=== PATIENT | male | born 1980 | race Caucasian/White ===

== ENCOUNTER 2018-12-24 11:45 | Outpatient (REF) | payer MEDICAID, SELFPAY ==
[2018-12-24 21:22] LABS: ALT 36 U/L (12-78); AST 18 U/L (15-37); Albumin 3.9 g/dL (3.4-5.0); Alkaline Phosphatase 87 U/L (46-116); Anion Gap 10.9 mmol/L (3-11); BUN 18 mg/dL (7-18); Bilirubin, Total 0.6 mg/dL (0.2-1.0); CO2 25.1 mmol/L (21.0-32.0); CREATININE 1.08 mg/dL (0.70-1.30); Calcium 9.2 mg/dL (8.5-10.1); Chloride 105 mmol/L (98-107); Cholesterol 190 mg/dL (50-200); Glucose 87 mg/dL (70-100); HDL Cholesterol 39 mg/dL (40-60); LDL CHOLESTEROL 131 mg/dL (<100); Potassium 3.6 mmol/L (3.5-5.1); Sodium 141 mmol/L (136-145); Total Protein 7.4 g/dL (6.4-8.2); Triglyceride 90 mg/dL (30-150)
== END 2018-12-24 12:05 ==
LOC: NCHCN 11:45
PROVIDERS: PCP Internal Medicine; Visit Provider Registered Nurse
DX: Z13.220 Encounter for screening for lipoid disorders (principal); Z13.228 Encounter for screening for other metabolic disorders; Z79.899 Other long term (current) drug therapy; Z51.81 Encounter for therapeutic drug level monitoring; Z00.00 Encounter for general adult medical examination without abnormal findings
CPT/HCPCS: 80053; 80061; 83721

== ENCOUNTER 2019-08-16 09:57 | Outpatient (REF) | payer MEDICAID, SELFPAY ==
[2019-08-16 21:17] LABS: RBC Distribution Width 13.2 % (11.8-14.1)
[2019-08-16 21:19] LABS: ALT 31 U/L (16-63)
[2019-08-16 22:21] LABS: HCT 47.8 % (40.0-50.0); HGB 16.1 g/dL (13.5-17.5); Mean Corp. HGB Concentration 33.7 g/dL (32.0-36.0); Mean Corpuscular Hemoglobin 30.4 pg (27.0-33.0); Mean Corpuscular Volume 90.4 fL (80-95); Platelet Count 189 x1000/uL (130-400); RBC 5.29 m/cumm (4.50-6.00); White Blood Cell Count 4.74 k/cumm (4.4-10.8)
[2019-08-20 14:21] LABS: Lamotrigine 3.2 mcg/mL (2.5 - 15.0)
[2019-08-21 06:30] LABS: Topiramate 7.3 mcg/mL
== END 2019-08-16 10:17 ==
LOC: LBN 09:57
PROVIDERS: PCP Internal Medicine; Visit Provider Psychiatry & Neurology Neurology
DX: R56.9 Unspecified convulsions (principal); Z51.81 Encounter for therapeutic drug level monitoring; Z79.899 Other long term (current) drug therapy
CPT/HCPCS: 80175; 85027; 80177; 80201; 84460

== ENCOUNTER 2020-03-25 10:46 | Outpatient (REF) | payer MEDICAID, SELFPAY | END 2020-03-25 11:06 | LOC: NCHCN 10:46 | PROVIDERS: PCP Internal Medicine; Visit Provider Registered Nurse | DX: R35.0 Frequency of micturition (principal) | CPT/HCPCS: 87086 ==

== ENCOUNTER 2020-10-22 18:00 | Outpatient (REF) | payer MEDICAID, SELFPAY ==
[2020-10-22 21:06] LABS: Hemoglobin A1C 5.3 % (<5.7)
[2020-10-22 21:29] LABS: Calculated LDL 112 mg/dL (<100); Cholesterol 169 mg/dL (<200); HDL Cholesterol 41 mg/dL (40-60); Triglyceride 82 mg/dL (<150)
== END 2020-10-22 18:01 | disposition home or self-care (01) ==
LOC: NCHCN 18:00
PROVIDERS: PCP Registered Nurse; Visit Provider Registered Nurse
DX: Z13.1 Encounter for screening for diabetes mellitus (principal); Z13.220 Encounter for screening for lipoid disorders; Z79.899 Other long term (current) drug therapy
CPT/HCPCS: 80061; 83036

== ENCOUNTER 2021-03-03 15:47 | Outpatient (REF) | payer MEDICAID, SELFPAY ==
[2021-03-03 21:44] LABS: Abs Immature Grans 0.01 10^3/uL (0.0-0.06); Absolute Basophil Count 0.05 10^3/uL (0.0-0.2); Absolute Eosinophil Count 0.11 10^3/uL (0.0-0.7); Absolute Lymphocyte Count 1.87 10^3/uL (1.2-3.4); Absolute Monocyte Count 0.63 10^3/uL (0.1-0.8); Absolute Neutrophil Count 4.75 10^3/uL (1.2-6.7); Basophils % 0.7; Eosinophils % 1.5; HCT 50.6 % (40.0-50.0); HGB 17.1 g/dL (13.5-17.5); Immature Grans % 0.1; Lymphocytes % 25.2; MCH 30.8 pg (27.0-33.0); MCHC 33.8 % (32.0-36.0); MCV 91.2 fL (80-95); MPV 10.8 fL (8.0-11.0); Monocytes % 8.5; Nucleated RBC 0 %; Platelet Count 216 10^3/uL (130-400); RBC 5.55 10^6/uL (4.36-5.78); RDW 12.3 % (11.8-14.1); RDW-SD 41.4 fL; WBC 7.42 10^3/uL (4.4-10.8)
[2021-03-03 22:05] LABS: ALT 36 U/L (16-63); AST 26 U/L (15-37); Albumin 4.4 g/dL (3.4-5.0); Alkaline Phosphatase 88 U/L (46-116); Anion Gap 14.5 mmol/L (3-11); BUN 15 mg/dL (7-18); Bilirubin, Total 0.4 mg/dL (0.2-1.0); CO2 22.5 mmol/L (21.0-32.0); Calcium 9.5 mg/dL (8.5-10.1); Chloride 106 mmol/L (98-107); Glucose 132 mg/dL (74-106); Potassium 3.6 mmol/L (3.5-5.1); Sodium 143 mmol/L (136-145); TSH 3.33 uIU/mL (0.36-3.74)
== END 2021-03-03 15:48 | disposition home or self-care (01) ==
LOC: NCHCN 15:47
PROVIDERS: PCP Registered Nurse; Visit Provider Registered Nurse
DX: R44.0 Auditory hallucinations (principal)
CPT/HCPCS: 80053; 84443; 85025

== ENCOUNTER 2021-10-08 12:22 | Outpatient (REF) | payer MEDICAID, SELFPAY ==
--- OUTSIDE RECORDS SUMMARY | 2021-10-08 12:25 | XMS_ITS | CCD ---
:1980 Author Care Team Providers Name Role Phone DANIELLE DICKSON MD Attending Physician Unavailable TORRES Er Physician 1 Unavailable Vital Signs Unknown or Not Available. Allergies Unknown or Not Available. Procedures Unknown or Not Available. History of Immunizations Unknown or Not Available. Problems Unknown or Not Available. Results Unknown or Not Available. Active Medications Unknown or Not Available. Medications Administered During Visit Unknown or Not Available. Encounters Encounter Diagnosis Diagnosis Code Start Date Auditory hallucinations R440 03/04/2021 Social History Smoking Status Code Start Date End Date Never smoker [id number] Patient Decision Aids Unknown or Not Available. Discharge Instructions You were admitted to [facility] on 03/04/2021 12:29 with a principal diagnosis of Auditory hallucinations You were discharged from [facility] on 03/04/2021 15:52 Should you have any questions prior to d ischarge, please contact a member of your healthcare team. If you have left the spital and have any questions, please contact your primary care physician. Chief Complaint and Reason For Visit Chief Complaint Date of Onset DISORIENTED/HALLUCINATIONS 03/04/2021 Function Status Unknown or Not Available. Plan of Care Unknown or Not Available. Referral/Transition of Care Unknown or Not Available.
[2021-10-08 16:04] LABS: HCT 47.9 % (40.0-50.0); HGB 15.7 g/dL (13.5-17.5); MCH 29.7 pg (27.0-33.0); MCHC 32.8 % (32.0-36.0); MCV 90.5 fL (80-95); MPV 11.1 fL (8.0-11.0); Platelet Count 188 10^3/uL (130-400); RBC 5.29 10^6/uL (4.36-5.78); RDW 12.8 % (11.8-14.1); RDW-SD 42.2 fL; WBC 4.78 10^3/uL (4.4-10.8)
[2021-10-10 13:56] LABS: Lyme Ab w Rflx to Lyme Confirm Negative (Negative)
[2021-10-11 06:28] LABS: Vitamin D 25 Total 26.3 ng/mL (30-100)
[2021-10-11 17:00] LABS: Anaplasma phagocytophilum Negative (Negative); B. miyamotoi PCR Negative (Negative); Babesia divergens/MO-1 Negative (Negative); Babesia duncani Negative (Negative); Babesia microti Negative (Negative); Ehrlichia chaffeensis Negative (Negative); Ehrlichia ewingii/canis Negative (Negative); Ehrlichia muris eauclairensis Negative (Negative)
== END 2021-10-08 12:23 | disposition home or self-care (01) ==
LOC: NCHCN 12:22
PROVIDERS: PCP Registered Nurse; Visit Provider Registered Nurse
DX: R53.83 Other fatigue (principal); G47.00 Insomnia, unspecified; R41.3 Other amnesia; R44.0 Auditory hallucinations
CPT/HCPCS: 82306; 85027; 87798; 84443; 86618

== ENCOUNTER 2022-10-07 09:54 | Outpatient (REF) | payer MEDICARE, MEDICAID, SELFPAY ==
[2022-10-12 08:28] LABS: Topiramate 11.3 mcg/mL
== END 2022-10-07 09:55 | disposition home or self-care (01) ==
LOC: LBN 09:54
PROVIDERS: PCP Registered Nurse; Visit Provider Psychiatry & Neurology Neurology
DX: R56.9 Unspecified convulsions (principal); Z51.81 Encounter for therapeutic drug level monitoring; Z79.899 Other long term (current) drug therapy
CPT/HCPCS: 80175; 84520; 80201; 82565

== ENCOUNTER 2022-12-07 12:35 | Outpatient (REF) | payer MEDICARE, MEDICAID, SELFPAY ==
[2022-12-07 22:11] LABS: HCT 47.9 % (40.0-50.0); HGB 15.8 g/dL (13.5-17.5); MCV 88 fL (80-95); Platelet Count 252 10^3/uL (130-400); RBC 5.44 10^6/uL (4.36-5.78); RDW-SD 41.9 fL; WBC 7.51 10^3/uL (4.4-10.8)
[2022-12-07 23:02] LABS: Calculated LDL 138 mg/dL (<100); Cholesterol 197 mg/dL (<200); HDL Cholesterol 41 mg/dL (40-60); TSH 2.05 uIU/mL (0.36-3.74); Triglyceride 94 mg/dL (<150); Vitamin B12 570 pg/mL (193-986)
== END 2022-12-07 12:36 | disposition home or self-care (01) ==
LOC: NCHCN 12:35
PROVIDERS: PCP Registered Nurse; Visit Provider Registered Nurse
DX: R53.83 Other fatigue (principal); R53.81 Other malaise; Z79.899 Other long term (current) drug therapy; R56.9 Unspecified convulsions
CPT/HCPCS: 80061; 85027; 82607; 84443

== ENCOUNTER 2023-01-17 11:33 | Outpatient (REF) | payer MEDICARE, MEDICAID, SELFPAY ==
[2023-01-17 14:57] LABS: Abs Immature Grans 0.02 10^3/uL (0.0-0.06); Absolute Basophil Count 0.02 10^3/uL (0.0-0.2); Absolute Eosinophil Count 0.09 10^3/uL (0.0-0.7); Absolute Lymphocyte Count 1.35 10^3/uL (1.2-3.4); Absolute Monocyte Count 0.51 10^3/uL (0.1-0.8); Absolute Neutrophil Count 4.49 10^3/uL (1.2-6.7); Basophils % 0.3; Eosinophils % 1.4; HCT 45.7 % (40.0-50.0); HGB 14.9 g/dL (13.5-17.5); Immature Grans % 0.3; Lymphocytes % 20.8; MCH 28.7 pg (27.0-33.0); MCHC 32.6 % (32.0-36.0); MCV 88 fL (80-95); MPV 10.2 fL (8.0-11.0); Monocytes % 7.9; Neutrophils % 69.3; Platelet Count 239 10^3/uL (130-400); RBC 5.19 10^6/uL (4.36-5.78); RDW-SD 42.1 fL; WBC 6.48 10^3/uL (4.4-10.8)
[2023-01-17 15:17] LABS: ALT 26 U/L (16-63); AST 23 U/L (15-37); Albumin 3.4 g/dL (3.4-5.0); Alkaline Phosphatase 85 U/L (46-116); BUN 12 mg/dL (7-18); Bilirubin, Total 0.5 mg/dL (0.2-1.0); CREATININE 1.1 mg/dL (0.70-1.30); Calcium 8.9 mg/dL (8.5-10.1); Chloride 107 mmol/L (98-107); Estimated GFR 87.03 (mL/min/1.73m2); Glucose 124 mg/dL (74-106); Potassium 3.4 mmol/L (3.5-5.1); Sodium 139 mmol/L (136-145); Total Protein 7.6 g/dL (6.4-8.2)
[2023-01-18 11:21] LABS: Lyme Ab w Rflx to Lyme Confirm Negative (Negative)
[2023-01-20 19:35] LABS: Anaplasma phagocytophilum Negative (Negative); B. miyamotoi PCR Negative (Negative); Babesia divergens/MO-1 Negative (Negative); Babesia duncani Negative (Negative); Babesia microti Negative (Negative); Ehrlichia chaffeensis Negative (Negative); Ehrlichia ewingii/canis Negative (Negative); Ehrlichia muris eauclairensis Negative (Negative)
== END 2023-01-17 11:34 | disposition home or self-care (01) ==
LOC: NCHCN 11:33
PROVIDERS: PCP Registered Nurse; Visit Provider Family Medicine
DX: R53.83 Other fatigue (principal)
CPT/HCPCS: 80053; 87798; 85025; 86618

== ENCOUNTER 2023-01-30 17:13 | Outpatient (REF) | payer MEDICARE, MEDICAID, SELFPAY ==
[2023-01-30 22:36] LABS: ESR 25 mm/hr (0-15)
[2023-01-30 22:42] LABS: C-Reactive Protein 1.51 mg/dL (0.0-0.3)
[2023-01-31 18:08] LABS: Rheumatoid Factor 207.5 IU/mL (<12.0)
[2023-02-01 10:09] LABS: Cyclic Citrullinated Peptide >200.0 U/mL (<5.0)
[2023-02-01 12:51] LABS: ANA Interpretation Positive (Negative); ANA Titer Pattern 1:160 Homogeneous
== END 2023-01-30 17:14 | disposition home or self-care (01) ==
LOC: NCHCN 17:13
PROVIDERS: PCP Registered Nurse; Visit Provider Family Medicine
DX: R22.33 Localized swelling, mass and lump, upper limb, bilateral (principal)
CPT/HCPCS: 85652; 86200; 86038; 86140; 86431

== ENCOUNTER 2023-02-23 16:09 | Outpatient (REF) | payer MEDICARE, MEDICAID, SELFPAY ==
--- NOTE | 2023-02-23 14:30 | SKI_PTH ---
PATIENT: Pierce Chambers LOC: [facility]#:[id number] AGE/SX: 42/M ROOM: RE02/23/[address]: Nora Oneill : 1980 BED: DIS: 02/23/2023 SPEC #: [id number] RECD: 02/24/23 10:26 STATUS: LEO REQ #: [id number] ARNOLDO: 02/23/23 14:[address]: Nora Oneill DEPT: Surgical Specimen RECD BY: Jennifer Robles Tissues: 1 - SKIN BIOPSY(SHAVE/PUNCH) Procedures: SKIN LEVEL 4 Comments: [id number]
== END 2023-02-23 16:10 | disposition home or self-care (01) ==
LOC: NCHCN 16:09
PROVIDERS: PCP Registered Nurse; Visit Provider Registered Nurse
DX: D22.9 Melanocytic nevi, unspecified (principal)
CPT/HCPCS: 88305

== ENCOUNTER 2023-04-20 16:03 | Outpatient (REF) | payer MEDICARE, MEDICAID, SELFPAY ==
[2023-04-21 13:13] LABS: ALT 40 U/L (16-63); AST 35 U/L (15-37); Albumin 3.1 g/dL (3.4-5.0); Alkaline Phosphatase 72 U/L (46-116); Bilirubin, Direct 0.1 mg/dL (0.0-0.2); Bilirubin, Total 0.4 mg/dL (0.2-1.0); Total Protein 7.4 g/dL (6.4-8.2)
[2023-04-21 19:15] LABS: Valproic Acid 43 ug/mL (50-100)
== END 2023-04-20 16:04 | disposition home or self-care (01) ==
LOC: LBN 16:03
PROVIDERS: PCP Registered Nurse; Visit Provider Psychiatry & Neurology Psychiatry
DX: G40.909 Epilepsy, unspecified, not intractable, without status epilepticus (principal); Z51.81 Encounter for therapeutic drug level monitoring; Z79.899 Other long term (current) drug therapy
CPT/HCPCS: 80076; 80164; 85025